=== PATIENT | male | born 1995 | race Two or more races ===

== ENCOUNTER 2019-03-23 18:33 | Emergency (ER) | payer SELFPAY ==
[~2019-03-23] VITALS: Ht 160 cm; Wt 63.5 kg
[~2019-03-23 18:33] MED LIST: DOXY100T PO; NAPR-683 PO
[2019-03-23 18:42] VITALS: BP 137/76
--- NOTE | 2019-03-23 19:12 | PHYS DOC ---
Past Medical History Past Medical History: Other Additional Past Medical Histor: ingrown toenail Past Surgical History: No Surgical History Alcohol Use: Rarely Drug Use: None Adult General Chief Complaint Chief Complaint: FOOT INJURY PAIN [facility] HPI Patient is a 23 year old male who presents with complaining of left foot pain. Patient states he started a new job at [employer] 2 months ago and walking for 12 hours constantly. Patient complaining of left lateral foot pain for the last 2 weeks as a constant pain that getting worse with standing up and bearing weight. Patient denies injuries and focal neurodeficit. Patient used pain ointment with mild improvement of his pain. Patient rated his pain 8 at rest and 10 with activity. Review of Systems Review of Systems Constitutional: Denies fever or chills [] Eyes: Denies change in visual acuity, redness, or eye pain [] HENT: Denies nasal congestion or sore throat [] Respiratory: Denies cough or shortness of breath [] Cardiovascular: No additional information not addressed in HPI [] GI: Denies abdominal pain, nausea, vomiting, bloody stools or diarrhea [] : Denies dysuria or hematuria [] Musculoskeletal: Denies back pain, reports joint pain [] Integument: Denies rash or skin lesions [] Neurologic: Denies headache, focal weakness or sensory changes [] Endocrine: Denies polyuria or polydipsia [] All other systems were reviewed and found to be within normal limits, except as documented in this note. Current Medications Current Medications Current Medications Medications (Trade) Dose Ordered Sig/Guevara Start Time Stop Time Status Last Admin Dose Admin Ibuprofen (Motrin) 800 mg 1X ONCE 03/23/19 19:15 03/23/19 19:16 DC 03/23/19 19:17 800 MG Allergies Allergies Allergies Coded Allergies Type Severity Reaction Last Updated Verified No Known Drug Allergies 04/18/15 No Physical Exam Physical Exam Constitutional: Well developed, well nourished, no distress, non-toxic appearance. [] HENT: Normocephalic, atraumatic. Eyes: PERRLA, EOMI, conjunctiva normal, no discharge. [] Neck: Normal range of motion, no tenderness, supple, no stridor. [] Cardiovascular:Heart rate regular rhythm, no murmur [] Lungs & Thorax: Bilateral breath sounds clear to auscultation [] Extremities: Left without deformity or edema or erythema, marked tenderness in fifth with the tarsal area without neurovascular deficit , no cyanosis, no clubbing, ROM intact, no edema. [] Neurologic: Alert and oriented X 3, no focal deficits noted. [] Psychologic: Affect normal, judgement normal, mood normal. [] Current Patient Data Vital Signs Vital Signs Date Time Temp Pulse Resp B/P (MAP) Pulse Ox O2 Delivery O2 Flow Rate FiO2 03/23/19 18:42 98.5 99 12 137/76 (96) 99 Room Air 98.5 EKG EKG [] Radiology/Procedures Radiology/Procedures [facility] [address] [place] [address] IMAGING REPORT Signed PATIENT: CHRISS BUSCHACCOUNT: [id number] : 1995 LOCATION: ER AGE: 23 SEX: M EXAM STATUS: DEP ER ORD. PHYSICIAN: ROGELIO HURT MD REASON: pain for 2 weeks PROCEDURE: FOOT LEFT 3V Exam performed: Left foot 3 views. Clinical Indication: Pain. Date of Service: 03/23/2019. Comparison : None available Findings: PA, oblique and lateral radiographs of the foot reveal the osseous structures to be intact and well aligned. The joint spaces are well preserved and the articular margins are smooth. Impression: Radiographically normal osseous structures of the left foot. Electronically signed by: Kristina Browne MD (03/23/2019 10:06 PM) [facility] DICTATED and SIGNED BY: KRISTINA BROWNE MD DATE: 03/23/19 8131 Course & Med Decision Making Course & Med Decision Making Pertinent Imaging studies reviewed. (See chart for details) Evaluation of patient in ER showed 23-year-old male patient with complaining of left foot pain for 2 weeks without injury. Patient had unremarkable physical exam and x-ray and was advised to follow-up with his work comp provider. I've spoken with the patient and/or caregivers. I've explained the patient's condition, diagnosis and treatment plan based on information available to me at this time. I've answered the patient's and/or caregivers questions and addressed any concerns. The patient and/or caregivers have a good understanding the ricardo ent's diagnosis, condition and treatment plan as can be expected at this point. Vital signs have been stabilized. The patient's condition is stable for discharge from the emergency department. The patient will pursue further outpatient evaluation with her primary care provider or other designated consulting physician as outlined in the discharge instructions. Patient and/or caregivers are agreeable to this plan of care and follow-up instructions have been explained in detail. The patient and/or caregivers have received these instructions in written format and expressed understanding of these discharge instructions. The patient and her caregivers are aware that if any significant change in condition or worsening of symptoms should prompt him to immediately return to this of the closest emergency department. If an emergent department is not readily available I would encourage him to call 911. Dragon Disclaimer Dragon Disclaimer This electronic medical record was generated, in whole or in part, using a voice recognition dictation system. Departure Departure Impression: Primary Impression: Left foot pain Disposition: HOME, SELF-CARE (at 2000) Condition: STABLE Referrals: NO PCP (PCP) Patient Instructions: Foot Contusion Additional Instructions: Apply ice and affected area Follow-up with your primary care physician in 3-5 days Return to ER if not getting better Wear shoes with more padding Scripts Ibuprofen (IBUPROFEN) 800 Mg Tablet 800 MG PO PRN Q8HRS PRN for INFLAMMATION, #20 TAB Prov: ROGELIO HURT MD 03/23/19 ROGELIO HURT MD Mar 23, 2019 19:12
[2019-03-23] MEDS ORDERED: IBUPROFEN 400 MG TABLET. PO ONE (19:15)
[2019-03-23] MEDS ORDERED: IBUP-1060 PO (20:03)
--- NOTE | 2019-03-23 22:09 | RAD ---
Exam performed: Left foot 3 views. Clinical Indication: Pain. Date of Service: 03/23/2019. Comparison : None available Findings: PA, oblique and lateral radiographs of the foot reveal the osseous structures to be intact and well aligned. The joint spaces are well preserved and the articular margins are smooth. Impression: Radiographically normal osseous structures of the left foot. Electronically signed by: Kristina Eli MD (03/23/2019 10:06 PM) [facility]
== END 2019-03-23 20:18 | disposition home or self-care (01) ==
LOC: ER 18:33
DX: M79.672 Pain in left foot (principal)
CPT/HCPCS: 73630; 99284

== ENCOUNTER 2019-09-05 18:29 | Emergency (ER) | payer SELFPAY ==
[~2019-09-05] VITALS: Ht 160 cm; Wt 65.0 kg
[~2019-09-05 18:29] MED LIST changes: +IBUP-1060 PO
[2019-09-05 18:35] VITALS: BP 153/78
--- NOTE | 2019-09-05 19:47 | PHYS DOC ---
Past Medical History Past Medical History: Other Additional Past Medical Histor: ingrown toenail Past Surgical History: No Surgical History Smoking Status: Never Smoker Alcohol Use: Rarely Drug Use: None Adult General Chief Complaint Chief Complaint: CHEST WALL PAIN HPI HPI Patient is a 24 year old male without history of medical problem who presents with complaint of shortness of breath and chest pain. Patient complaining of intermittent episodes of shortness of breath and left-sided chest pain as an aching pain that wakes him up at night several times for the last 2 weeks associated with palpitation and hand numbness and dizziness that last for few seconds to minutes and resolve spontaneously. Patient rated his pain 8/10 and denies exertional shortness of breath, cough, fever, URI symptoms, sick contact. Review of Systems Review of Systems Constitutional: Denies fever or chills [] Eyes: Denies change in visual acuity, redness, or eye pain [] HENT: Denies nasal congestion or sore throat [] Respiratory: Denies cough, reports shortness of breath [] Cardiovascular: No additional information not addressed in HPI [] GI: Denies abdominal pain, nausea, vomiting, bloody stools or diarrhea [] : Denies dysuria or hematuria [] Musculoskeletal: Denies back pain or joint pain [] Integument: Denies rash or skin lesions [] Neurologic: Denies headache, focal weakness or sensory changes [] Endocrine: Denies polyuria or polydipsia [] All other systems were reviewed and found to be within normal limits, except as documented in this note. Allergies Allergies Allergies Coded Allergies Type Severity Reaction Last Updated Verified No Known Drug Allergies 04/18/15 No Physical Exam Physical Exam Constitutional: Well developed, well nourished, no acute distress, non-toxic appearance. [] HENT: Normocephalic, atraumatic, bilateral external ears normal, oropharynx moist, no oral exudates, nose normal. [] Eyes: PERRLA, EOMI, conjunctiva normal, no discharge. [] Neck: Normal range of motion, no tenderness, supple, no stridor. [] Cardiovascular:Heart rate regular rhythm, no murmur [] Lungs & Thorax: Bilateral breath sounds clear to auscultation [] Abdomen: Bowel sounds normal, soft, no tenderness, no masses, no pulsatile masses. [] Skin: Warm, dry, no erythema, no rash. [] Back: No tenderness, no CVA tenderness. [] Extremities: No tenderness, no cyanosis, no clubbing, ROM intact, no edema. [] Neurologic: Alert and oriented X 3, normal motor function, normal sensory function, no focal deficits noted. [] Psychologic: Affect normal, judgement normal, mood normal. [] Current Patient Data Vital Signs Vital Signs Date Time Temp Pulse Resp B/P (MAP) Pulse Ox O2 Delivery O2 Flow Rate FiO2 09/05/19 18:35 98.1 92 16 153/78 (103) 99 Room Air 98.1 EKG EKG [] Radiology/Procedures Radiology/Procedures [facility] [address] [place], [place] [id number] IMAGING REPORT Signed PATIENT: CHRISS BUSCHACCOUNT: [id number] : 1995 LOCATION: ER AGE: 24 SEX: M EXAM STATUS: PRE ER ORD. PHYSICIAN: ROGELIO HURT MD REASON: Intermittent episodes of shortness of breath and chest pain PROCEDURE: CHEST PA & LATERAL Two-view chest dated 09/05/2019. Comparison made to 09/25/2012. CLINICAL INDICATION: Intermittent episodes of shortness of breath and chest pain. FINDINGS: PA and lateral views obtained. Heart and mediastinal contours within normal limits. Lungs are clear. No consolidation or pleural effusion. No pneumothorax. IMPRESSION: No acute radiographic abnormality. Electronically signed by: Daniel Rojas MD (09/05/2019 7:45 PM) [id number] DICTATED and SIGNED BY: DANIEL ROJAS MD DATE: 09/05/19 194 Course & Med Decision Making Course & Med Decision Making Pertinent Imaging studies reviewed. (See chart for details) Evaluation of patient inertial 24-year-old male patient without history of medical problem presented with intermittent episodes of nightly shortness of breath and chest pain for the last 2 weeks. Patient had unremarkable physical exam and chest x-ray. Patient was concerned for COVID 19 infection but did not have fever and chills, cough, shortness of breath and chest pain at day time. Plan discharge patient home with diagnosis of anxiety and panic attack. I've spoken with the patient and/or caregivers. I've explained the patient's condition, diagnosis and treatment plan based on information available to me at this time. I've answered the patient's and/or caregivers questions and addressed any concerns. The patient and/or caregivers have a good understanding the patient's diagnosis, condition and treatment plan as can be expected at this point. Vital signs have been stabilized. The patient's condition is stable for discharge from the emergency department. The patient will pursue further outpatient evaluation with her primary care provider or other designated consulting physician as outlined in the discharge instructions. Patient and/or caregivers are agreeable to this plan of care and follow-up instructions have been explained in detail. The patient and/or caregivers have received these instructions in written format and expressed understanding of these discharge instructions. The patient and her caregivers are aware that if any significant change in condition or worsening of symptoms should prompt him to immediately return to this of the closest emergency department. If an emergent department is not readily available I would encourage him to call 911. Francheska Disclaimer Francheska Disclaimer This electronic medical record was generated, in whole or in part, using a voice recognition dictation system. Departure Departure Impression: Primary Impression: Panic attack Additional Impression: Anxiety about health Disposition: HOME, SELF-CARE (At 1951) Condition: STABLE Referrals: NO PCP (PCP) Patient Instructions: Anxiety and Panic Attacks Additional Instructions: Drink plenty of liquids Follow-up with your primary care physician in 3-5 days Return to ER if not getting better Thank you for visiting [facility]. We appreciate you trusting us with your care. If any additional problems come up don't hesitate to return to visit us. Please follow up with your primary care provider so they can plan additional care if needed and know about the problem that you had. If symptoms worsen come back to the Emergency Department. Any concerning symptoms that start such as chest pain, shortness of air, weakness or numbness on one side of the body, running high fevers or any other concerning symptoms return to the ER. Scripts Hydroxyzine Hcl (HYDROXYZINE HCL) 25 Mg Tablet 1 TAB PO QHS PRN for ANXIETY, #15 TAB Prov: ROGELIO HURT MD 09/05/19 Problem Qualifiers ROGELIO HURT MD Sep 05, 2019 19:47
[2019-09-05] MEDS ORDERED: HYDR25TA PO (19:58)
== END 2019-09-05 20:04 | disposition home or self-care (01) ==
LOC: ER 18:29
DX: R41.9 Unspecified symptoms and signs involving cognitive functions and awareness (principal); R07.89 Other chest pain; R06.02 Shortness of breath; R42 Dizziness and giddiness; R20.0 Anesthesia of skin; R00.2 Palpitations
CPT/HCPCS: 71046; 99283

== ENCOUNTER 2020-07-27 00:25 | Emergency (ER) | payer SELFPAY ==
[~2020-07-27] VITALS: Ht 160 cm; Wt 81.8 kg
[~2020-07-27 00:25] MED LIST changes: +HYDR25TA PO
[2020-07-27 00:35] VITALS: BP 170/82
[2020-07-27] MEDS ORDERED: DEXAMETHASONE 4 MG TABLET PO ONE (00:45)
[2020-07-27 01:15] LABS: MONONUCLEOSIS PATIENT NEGATIVE (NEGATIVE)
[2020-07-27] MEDS ORDERED: AZIT250T PO (01:31)
--- NOTE | 2020-07-27 01:32 | PHYS DOC ---
Past Medical History Past Medical History: Other Additional Past Medical Histor: ingrown toenail Past Surgical History: No Surgical History Smoking Status: Never Smoker Alcohol Use: Occasionally Drug Use: None General Adult EDM: Chief Complaint: SORE THROAT HPI: HPI: Patient is a 25 year old [f__sex] who presents with [] Review of Systems: Review of Systems: Constitutional: Reports fever and chills Eyes: Denies redness or eye pain HENT: Denies nasal congestion; reports sore throat Respiratory: Denies cough or shortness of breath Cardiovascular: Denies chest pain or palpitations GI: Denies abdominal pain, nausea, or vomiting : Denies dysuria or hematuria Musculoskeletal: Denies back pain or joint pain Integument: Denies rash or skin lesions Neurologic: Reports headache; denies focal weakness or sensory changes Complete systems were reviewed and found to be within normal limits, except as documented in this note. Current Medications: Current Medications Medications (Trade) Dose Ordered Sig/Guevara Start Time Stop Time Status Last Admin Dose Admin Dexamethasone (Decadron) 10 mg 1X ONCE 07/27/20 00:45 07/27/20 00:46 DC 07/27/20 00:52 10 MG Allergies: Allergies: Allergies Coded Allergies Type Severity Reaction Last Updated Verified No Known Drug Allergies 04/18/15 No Physical Exam: PE: Constitutional: Well developed, well nourished, no acute distress, non-toxic appearance HENT: Normocephalic, atraumatic, tonsillar erythema, swelling and exudate- left > right, uvula midline Eyes: Conjunctiva normal, no discharge Neck: Normal range of motion, no tenderness, supple, no meningeal signs Lungs & Thorax: No respiratory distress, equal chest rise and fall Skin: Warm, dry, no erythema, no rash Extremities: No tenderness, ROM intact, no edema Neurologic: Alert and oriented X 3, no focal deficits noted Psychologic: Affect normal, judgment normal Current Patient Data: Labs: Laboratory Tests Test 07/27/20 01:01 Heterophil Agglutinins Negative (NEGATIVE) Vital Signs: Vital Signs Date Time Temp Pulse Resp B/P (MAP) Pulse Ox O2 Delivery O2 Flow Rate FiO2 07/27/20 00:35 98.9 111 13 170/82 (111) 97 Room Air 98.9 EKG: EKG: [] Radiology/Procedures: Radiology/Procedures: [] Course & Med Decision Making: Course & Med Decision Making Pertinent Labs and Imaging studies reviewed. (See chart for details) [] Dragon Disclaimer: Francheska Disclaimer: This electronic medical record was generated, in whole or in part, using a voice recognition dictation system. Departure Departure Impression: Primary Impression: Pharyngitis Qualified Codes: J02.9 - Acute pharyngitis, unspecified Additional Impressions: Headache Qualified Codes: R51.9 - Headache, unspecified Suspected 2019 novel coronavirus infection Disposition: 01 DC HOME SELF CARE/HOMELESS Condition: STABLE Referrals: NO PCP (PCP) Patient Instructions: Headache, FAQs, Viral Syndrome, Viral and Bacterial Pharyngitis, [id number] Additional Instructions: Use over the counter Tylenol and/or Ibuprofen for pain or discomfort. Hold antibiotics for 48 hours. If symptoms worsen or for fever > 100.3 F after 48 hours then start antibiotics as prescribed. You have been tested for or diagnosed with COVID-19. It is an infection caused by a new type of coronavirus. COVID-19 will cause cold-like or mild flu symptoms in most. It can cause more severe symptoms like problems breathing in some. There is no treatment for COVID-19. The body will clear the infection over time. Self-care will help to ease discomfort. Steps to Take: Self-Care Rest as needed. Healthy habits may help you feel better. Steps include: Choose healthy foods including fruits and vegetables. Drink water throughout the day. Get plenty of sleep each night. If you smoke, try to quit. It may ease breathing. Avoid alcohol. Keep Others Healthy The virus can spread to others. Droplets are released every time you sneeze or cough. The droplets can get into the mouth, nose, or eyes of people near you and lead to infection. To lower the chances of spreading COVID-19 to others: Stay at home until your doctor has said it is safe to leave. If you tested positive this will mean staying isolated until both of the following are true: At least 7 days have passed since the start of illness. You are free of fever for at least 72 hours without the use of medicine. During this time: - Avoid public areas, events, or transportation. Do not return to work or school until your doctor has said it is safe to do so. - Call ahead if you need to go to a medical center. Let them know you may have COVID-19. It will help them guide you where to go. They may also ask you to wear a facemask when you come to the office. - If you call for emergency medical services, let them know you may have COVID- 19. While at home: - Try to avoid close contact with others. Stay about 6 feet away. - If possible, spend most of your time in a separate room from others. - Use a face mask if you will be in close contact with others such as sharing a room or vehicle. - Have someone wipe down common surfaces in the home. Use household truck service technician every day on areas like doorknobs, counters, or sinks. - Cough or sneeze into a tissue. Throw the tissue away right after use. If a tissue is not available, cough or sneeze into your elbow. - Wash your hands often. Wash them after sneezing or coughing. Use soap and water and wash for at least 20 seconds. Alcohol based hand well cleaner can be used if soap and water is not available. - Do not prepare food for others. Avoid sharing personal items like forks, spoons, or toothbrushes. - Avoid close contact with pets while you are sick. There is no evidence of the virus passing to pets. This is a safety step until more is known about this virus. Isolation can be frustrating. Social interaction can help. Keep in touch with friends and family through phone and tech options. You can still interact with others in your home, just keep a safe distance of about 6 feet. Follow-up: Your doctors office will check in with you to see if there are any changes in your health. You may be asked to keep track of symptoms to share with them. They will also let you know when you are clear to be in public again. Problems to Look Out For: Contact your doctor if your recovery is not going as you expect. Get emergency care if you have problems such as: - Trouble breathing - Nonstop chest pain or pressure - Changes in awareness, confusion, or problems waking - Lips or face have bluish color - Worsening of symptoms If you think you have an emergency, call for emergency medical services right away. As taken from [facility] Azithromycin (ZITHROMAX) 250 Mg Tablet 1 PKG PO UD, #6 TAB Take 2 tablets on day 1 and then 1 tablet each day for the next 4 days as directed Prov: SAMMY GROVES DO 07/27/20 SAMMY GROVES DO Jul 27, 2020 01:31
== END 2020-07-27 01:45 | disposition home or self-care (01) ==
LOC: ER 00:25
DX: J02.9 Acute pharyngitis, unspecified (principal); Z20.822 Contact with and (suspected) exposure to COVID-19; R51.9 Headache, unspecified; R50.9 Fever, unspecified
CPT/HCPCS: 86308; 87070; 87880; 99283; C9803; U0003

== ENCOUNTER 2020-07-28 10:42 | Emergency (ER) | payer SELFPAY ==
[~2020-07-28] VITALS: Ht 160 cm; Wt 83.0 kg
[~2020-07-28 10:42] MED LIST changes: +AZIT250T PO
[2020-07-28] MEDS ORDERED: ACETAMINOPHEN 500 MG TABLET PO ONE (11:30)
[2020-07-28] MEDS ORDERED: DEXAMETHASONE SOD PHOS 20 MG/5 ML VIAL. IV ONE (11:30)
[2020-07-28] MEDS ORDERED: IV NORMAL SALINE 1000ML BAG 1,000 ML IV ONE (11:30)
[2020-07-28] MEDS ORDERED: KETOROLAC 30 MG/ML VIAL. IV ONE (11:30)
[2020-07-28 11:43] LABS: BASO # 0.2 x10^3/uL (0.0-0.2); BASO % 1 % (0-3); EOS # 0.1 x10^3/uL (0.0-0.7); EOS % 0 % (0-3); HEMATOCRIT 39.5 % (39.0-53.0); HEMOGLOBIN 13.2 g/dL (13.0-17.5); LYMPH # 1.8 x10^3/uL (1.0-4.8); LYMPH % 11 % (24-48); MEAN CORPUSCULAR HEMOGLOBIN 27 pg (25-35); MEAN CORPUSCULAR HGB CONC 34 g/dL (31-37); MEAN CORPUSCULAR VOLUME 81 fL (79-100); MONO # 1.5 x10^3/uL (0.0-1.1); MONO % 9 % (0-9); NEUT # 12.4 x10^3/uL (1.8-7.7); NEUT % 78 % (31-73); PLATELET COUNT 292 x10^3/uL (140-400); RED BLOOD COUNT 4.86 x10^6/uL (4.30-5.70); RED CELL DISTRIBUTION WIDTH 13.1 % (11.5-14.5); WHITE BLOOD COUNT 15.9 x10^3/uL (4.0-11.0)
[2020-07-28 11:51] LABS: CALCIUM 8.7 mg/dL (8.5-10.1); GFR 89.6; POTASSIUM 3.6 mmol/L (3.5-5.1)
[2020-07-28] MEDS ORDERED: IOHEXOL 300 MG/ML 100ML VIAL. IV ONE (12:00)
[2020-07-28] MEDS ORDERED: CONTRAST GIVEN. MC PRN (12:00)
[2020-07-28 12:06] LABS: ALBUMIN 3.7 g/dL (3.4-5.0); ALBUMIN/GLOBULIN RATIO 0.8 (1.0-1.7); MAGNESIUM 2.2 mg/dL (1.8-2.4); TOTAL BILIRUBIN 0.3 mg/dL (0.2-1.0); TOTAL PROTEIN 8.3 g/dL (6.4-8.2)
--- NOTE | 2020-07-28 12:34 | RAD ---
CT NECK SOFT TISSUE WITH IV CONTRAST History: Peritonsillar abscess. Comparison: None. Technique: CT of the neck with intravenous contrast. Findings: Mucosa: There is a 3.3 x 2.4 x 2.9 cm irregular fluid collection with thick peripheral enhancement at the left palatine tonsil. Glands: Normal bilateral parotid, submandibular, and thyroid glands. Nodes: No pathologically enlarged or necrotic cervical lymph nodes. Vessels: Vascular structures are patent.? No carotid space mass. Other: No suspicious lesion in the cervical spine or lung apices. Impression: 1. Left peritonsillar abscess measuring 3.3 x 2.4 x 2.9 cm as above. ------ Exposure: One or more of the following individualized dose reduction techniques were utilized for thi s examination: 1. Automated exposure control 2. Adjustment of the mA and/or kV according to patient size 3. Use of iterative reconstruction technique. Electronically signed by: Faisal Fuentes MD (07/28/2020 12:31 PM) [facility]
--- NOTE | 2020-07-28 12:49 | ED.ADGEN ---
Past Medical History Past Medical History: Other Additional Past Medical Histor: ingrown toenail Past Surgical History: No Surgical History Smoking Status: Never Smoker Alcohol Use: Occasionally Drug Use: None General Adult EDM: Chief Complaint: SORE THROAT HPI: HPI: Patient is a 25 year old male who presents emergency department with complaints of worsening sore throat. Patient states he was seen here late Monday night and tested for mono, strep, and Covid. Patient reports that all of his results were negative. He states that his throat has continued to become more painful and he reports having a fever at this time. Patient denies taking any other medication that was previously prescribed to him. He denies taking any Tylenol for his fever today. Patient denies any shortness of breath or difficulty swallowing his saliva. He reports it is very painful for him to swallow. He currently rates his pain a 10 out of 10 on the pain scale, he denies any alleviating factors. Patient denies any recent known ill contacts. He reports that he feels fatigued and aches all over. Review of Systems: Review of Systems: Complete ROS is negative unless otherwise noted in HPI. Current Medications: Current Medications Medications (Trade) Dose Ordered Sig/Guevara Start Time Stop Time Status Last Admin Dose Admin Acetaminophen (Tylenol) 1,000 mg 1X ONCE 07/28/20 11:30 07/28/20 11:31 DC 07/28/20 11:42 1,000 MG Dexamethasone Sodium Phosphate (Decadron) 10 mg 1X ONCE 07/28/20 11:30 07/28/20 11:32 DC 07/28/20 11:45 10 MG Info (CONTRAST GIVEN -- Rx MONITORING) 1 each PRN DAILY PRN 07/28/20 12:00 07/28/20 13:10 DC Iohexol (Omnipaque 300 Mg/ml) 70 ml 1X ONCE 07/28/20 12:00 07/28/20 12:01 DC 07/28/20 11:58 70 ML Ketorolac Tromethamine (Toradol 30mg Vial) 30 mg 1X ONCE 07/28/20 11:30 07/28/20 11:32 DC 07/28/20 11:44 30 MG Sodium Chloride 1,000 ml @ 1,000 mls/hr 1X ONCE 07/28/20 11:30 07/28/20 12:29 DC 07/28/20 11:41 1,000 MLS/HR Allergies: Allergies: Allergies Coded Allergies Type Severity Reaction Last Updated Verified No Known Drug Allergies 04/18/15 No Physical Exam: PE: See Above Constitutional: Well developed, well nourished, no acute distress, ill appearance. [] HENT: Normocephalic, atraumatic, bilateral external ears normal, moist mucous membranes, nose normal; 3+ edema to posterior tonsils bilaterally with uvula deviated to the right, edema is more significant on the left than the right [] Eyes: PERRLA, EOMI, conjunctiva normal, no discharge. [] Neck: Normal range of motion, supple, tender, no stridor. [] Cardiovascular:Heart rate regular rhythm Lungs & Thorax: Respirations even and unlabored, no retractions, no respiratory distress Skin: Warm, dry, no erythema, no rash. [] Extremities: No cyanosis, ROM intact, no edema. [] Neurologic: Alert and oriented X 3, no focal deficits noted. [] Psychologic: Affect normal, judgement normal, mood normal. [] Current Patient Data: Labs: Laboratory Tests Test 07/28/20 11:30 07/28/20 11:53 White Blood Count 15.9 x10^3/uL (4.0-11.0) H Red Blood Count 4.86 x10^6/uL (4.30-5.70) Hemoglobin 13.2 g/dL (13.0-17.5) Hematocrit 39.5 % (39.0-53.0) Mean Corpuscular Volume 81 fL (79-100) Mean Corpuscular Hemoglobin 27 pg (25-35) Mean Corpuscular Hemoglobin Concent 34 g/dL (31-37) Red Cell Distribution Width 13.1 % (11.5-14.5) Platelet Count 292 x10^3/uL (140-400) Neutrophils (%) (Auto) 78 % (31-73) H Lymphocytes (%) (Auto) 11 % (24-48) L Monocytes (%) (Auto) 9 % (0-9) Eosinophils (%) (Auto) 0 % (0-3) Basophils (%) (Auto) 1 % (0-3) Neutrophils # (Auto) 12.4 x10^3/uL (1.8-7.7) H Lymphocytes # (Auto) 1.8 x10^3/uL (1.0-4.8) Monocytes # (Auto) 1.5 x10^3/uL (0.0-1.1) H Eosinophils # (Auto) 0.1 x10^3/uL (0.0-0.7) Basophils # (Auto) 0.2 x10^3/uL (0.0-0.2) Sodium Level 135 mmol/L (136-145) L Potassium Level 3.6 mmol/L (3.5-5.1) Chloride Level 100 mmol/L (98-107) Carbon Dioxide Level 26 mmol/L (21-32) Anion Gap 9 (6-14) Blood Urea Nitrogen 16 mg/dL (8-26) Creatinine 1.0 mg/dL (0.7-1.3) Estimated GFR (Cockcroft-Gault) 89.6 BUN/Creatinine Ratio 16 (6-20) Glucose Level 100 mg/dL (70-99) H Lactic Acid Level 0.9 mmol/L (0.4-2.0) Calcium Level 8.7 mg/dL (8.5-10.1) Magnesium Level 2.2 mg/dL (1.8-2.4) Total Bilirubin 0.3 mg/dL (0.2-1.0) Aspartate Amino Transferase (AST) 16 U/L (15-37) Alanine Aminotransferase (ALT) 29 U/L (16-63) Alkaline Phosphatase 63 U/L (46-116) Total Protein 8.3 g/dL (6.4-8.2) H Albumin 3.7 g/dL (3.4-5.0) Albumin/Globulin Ratio 0.8 (1.0-1.7) L Group A Streptococcus Rapid Negative (NEGATIVE) Laboratory Tests 07/28/20 11:30 Laboratory Tests 07/28/20 11:30 Vital Signs: Vital Signs Date Time Temp Pulse Resp B/P (MAP) Pulse Ox O2 Delivery O2 Flow Rate FiO2 07/28/20 12:51 90 16 128/78 (95) 96 Room Air 07/28/20 11:25 101.9 101.9 EKG: EKG: [] Heart Score: Risk Factors: Risk Factors: DM, Current or recent (<one month) smoker, HTN, HLP, family history of CAD, obesity. Risk Scores: Score 0 - 3: 2.5% MACE over next 6 weeks - Discharge Home Score 4 - 6: 20.3% MACE over next 6 weeks - Admit for Clinical Observation Score 7 - 10: 72.7% MACE over next 6 weeks - Early Invasive Strategies Radiology/Procedures: Radiology/Procedures: PROCEDURE: CT SOFT TISSUE NECK W/CONTRAST CT NECK SOFT TISSUE WITH IV CONTRAST History: Peritonsillar abscess. Comparison: None. Technique: CT of the neck with intravenous contrast. Findings: Mucosa: There is a 3.3 x 2.4 x 2.9 cm irregular fluid collection with thick peripheral enhancement at the left palatine tonsil. Glands: Normal bilateral parotid, submandibular, and thyroid glands. Nodes: No pathologically enlarged or necrotic cervical lymph nodes. Vessels: Vascular structures are patent.? No carotid space mass. Other: No suspicious lesion in the cervical spine or lung apices. Impression: 1. Left peritonsillar abscess measuring 3.3 x 2.4 x 2.9 cm as above. ------ Exposure: One or more of the following individualized dose reduction techniques were utilized for this examination: 1. Automated exposure control 2. Adjustment of the mA and/or kV according to patient size 3. Use of iterative reconstruction technique. [] Course & Med Decision Making: Course & Med Decision Making Pertinent Labs and Imaging studies reviewed. (See chart for details) 25-year-old male presented to emergency department with worsening sore throat and a fever. Patient was given a gram of Tylenol, 10 mg of IV Decadron, 1 L of normal saline, and 30 mg of IV Toradol. He reported feeling better after these medications. CT soft tissue neck revealed a peritonsillar abscess of the palatine tonsil. Consulted Dr. Anusha Quinones who requested that I send the patient immediately over to her office located in the [facility]. She reports that she will drain the abscess in her office. I advised the patient of the plan, patient agrees with the plan he will go straight to Dr. Anusha Quinones's office for drainage of the peritonsillar abscess. [] Francheska Disclaimer: Francheska Disclaimer: This electronic medical record was generated, in whole or in part, using a voice recognition dictation system. Departure Departure Impression: Primary Impression: Peritonsillar abscess Disposition: 01 DC HOME SELF CARE/HOMELESS Condition: STABLE Referrals: NO PCP (PCP) ANUSHA QUINONES MD Patient Instructions: Peritonsillar Abscess, [id number] Additional Instructions: Go directly to Dr. Anusha Quinones's office located at [address] near the [facility]. Return to the ER if symptoms worsen. DENI ESCUDERO APRN Jul 28, 2020 12:48
[2020-07-28 12:51] VITALS: BP 128/78
--- NOTE | 2020-07-28 14:14 | NUR ---
IP: Informed pt of negative COVID test. Pt verbalized understanding. States his throat pain has gotten worse. Encouraged either another ED visit or a follow up with his PCP.
== END 2020-07-28 13:00 | disposition home or self-care (01) ==
LOC: ER 10:42
DX: J36 Peritonsillar abscess (principal); R50.9 Fever, unspecified
CPT/HCPCS: 36415; 70491; 80053; 83605; 83735; 85025; 87070; 87880; 96361; 96374; 96375; 99285; J1100; J1885; J7030; Q9967